=== PATIENT | female | born 1960 | race Caucasian/White ===

== ENCOUNTER 2017-01-28 13:51 | Emergency (ER) | payer MEDICARE, OTHER ==
[~2017-01-28] VITALS: Ht 162.6 cm; Wt 72.0 kg
[~2017-01-28 13:51] MED LIST: ALBU17I INH; BETH25TA3 PO; CIPR500T4 PO; DICY20TA10 PO; FEMA2.5T PO; LATA.005%O OU; LEXA10TA PO; NEXI40CA PO; NORC7.5T PO; PRED10 PO; SPIRCAP INH; XANA1TAB6 PO; ZOFR4TAB3 PO
[2017-01-28 13:53] VITALS: BP 134/76; PULSE 98; RESP 24; TEMP 97.7; O2SAT 96
--- NOTE | 2017-01-28 14:43 | PD ---
Physical Exam Time Seen by Provider: 14:41 Narrative 56 y/o female with pruritic rash which started 3 days ago. Seems to be worse on her arms and thighs. vss Seen at triage desk. Awaiting bed placement. Data Data Last Documented VS Vital Signs Date Time Temp Pulse Resp B/P Pulse Ox O2 Delivery O2 Flow Rate FiO2 01/28/17 13:53 97.7 98 24 134/76 96 Room Air [facility] Medical Record Reviewed: Yes Supervised Visit with JOANNE: Yao Calderon January 28, 2017 14:43
[2017-01-28 15:28] VITALS: RESP 22; O2SAT 99
[2017-01-28] MEDS ORDERED: diphenhydrAMINE HCL 50 MG/ML VIAL IVP ONE (17:30)
[2017-01-28] MEDS ORDERED: SODIUM CHLORIDE 0.9% FLUSH 10 ML FLUSH IVF PRN (17:30)
[2017-01-28] MEDS ORDERED: methylPREDNISolone SOD SUCC 125 MG/2 ML VIAL IVP ONE (17:30)
[2017-01-28] MEDS ORDERED: FAMOTIDINE 20 MG/2 ML VIAL IV PUSH SCH (17:30)
[2017-01-28] MEDS ORDERED: SODIUM CHLOR 0.9% 1000 ML INJ 1,000 ML IV ONE (17:30)
--- NOTE | 2017-01-28 17:37 | PD ---
HPI Chief Complaint: Skin Problem Time Seen by Provider: 17:07 Travel History International Travel<30 days: No Contact w/Intl Traveler<30days: No Traveled to known affect area: No History of Present Illness HPI Patient is a 56-year-old female who presents to emergency with multiple complaints. Patient reports that she got her hair dyed on Saturday at her Salon. Reports that she used the normal hair dye that she normally uses and has used in the past. Patient reports that after she had her hair dyed, she broke in to a rash. Patient reports that the rash initially started her ears and then to the back of her neck, reports that she now has a rash throughout her body. Patient reports that the rash is pruritic and "I can't stop scratching it." Patient reports that she has used Benadryl cream without any resolution of symptoms. Patient denies fevers or chills. Reports that she has used the same hair dye solution in the past and has tolerated and has never had a rash. Patient denies any new lotions or creams or any new laundry detergents. Patient also reports that she has had a reactive cough since August. Patient reports that she is a smoker, reports that when she coughs, coughing up thick productive mucus. Patient reports that she has been on a couple bouts of antibiotics with no relief of symptoms. Patient reports that she has been worked up for pneumonia, reports that she was told that her x-rays were clear. Patient would like to have a workup for possible pneumonia. Reports that she can't stop coughing, reports that she is also wheezing. PFSH Past Medical History Anxiety: Yes Depression: Yes Cancer: Yes (BREAST) Cardiac Catheterization: Yes (FIRST IN 1999, SECOND 2005) High Cholesterol: Yes Chest Pain: Yes (2 HEART CATHS AND WAS R/O FOR [place]) COPD: Yes GERD: Yes Glaucoma: Yes Headaches: Yes Respiratory: Yes (COPD) Radiation Therapy: Yes Sleep Apnea: Yes PNEUMOCCOCAL Vaccine (Year): 2 Menopausal: Yes : 6 Para: 0 Miscarriage: 6 Dilation and Curettage (D&C): Yes (x 6) Past Surgical History Abdominal Surgery: Yes (SEVERAL LAPOROSCOPIES) Appendectomy: Yes Cardiac Surgery: No Cholecystectomy: Yes Genitourinary Surgery: No Gynecologic Surgery: Yes (LAPOSCOPY X5 OVER TEN YEARS AGO ) Neurologic Surgery: No Thoracic Surgery: No Other Surgery: Yes (R BREAST LUMPECTOMY) Family History Family Hypercholesterolemia: Yes Social History Alcohol Use: No Tobacco Use: Yes (1 PPD) Substance Use: No Allergies-Medications (Allergen,Severity, Reaction): Coded Allergies: Prozac (Verified Allergy, Severe, Rash, 01/28/17) Toradol (Verified Allergy, Severe, Hallucinations, 01/28/17) Reported Meds & Prescriptions Reported Meds & Active Scripts Active Reported Clear Eyes Natural Tears Opth Drops (Polyvinyl Alcohol-Povidone Opth Drops) 5-6 Mg/Ml Drops 1 Drop EACH EYE DAILY C 500 (Ascorbic Acid) 500 Mg Tab Unknown Dose PO DAILY B-12 (Cyanocobalamin) 100 Mcg Tab Unknown Dose PO DAILY Probiotic (Lactobacillus Acidophilus) 1 Cap Cap 1 Cap PO TIDAC Singulair (Montelukast Sodium) 10 Mg Tab 10 Mg PO DAILY Effexor XR 24 HR (Venlafaxine HCl) 75 Mg Cap 75 Mg PO DAILY Latanoprost Opth Drops (Latanoprost) 0.005% Drops 1 Drop EACH EYE HS Refrigerate until opened. Tyler (Hydrocodone-Acetaminophen) 7.5-325 mg Tab 1 Tab PO QID PRN Nexium (Esomeprazole DR) 40 Mg Capdr 40 Mg PO DAILY Bethanechol 25 Mg Tab 25 Mg PO QID Xanax (Alprazolam) 1 Mg Tab 1 Mg PO Q4-6H PRN Proventil Hfa 6.7 GM Inh (Albuterol Sulfate) 90 Mcg/Act Aer 2 Puff INH Q4H PRN Review of Systems General / Constitutional: No: Fever, Chills Eyes: No: Visual changes HENT: No: Headaches Cardiovascular: No: Chest Pain or Discomfort Respiratory: Positive: Cough, Shortness of Breath, Wheezing Gastrointestinal: No: Abdominal Pain Genitourinary: No: Dysuria Musculoskeletal: No: Pain Skin: Positive Rash, Positive Itching, Positive Hives Neurologic: No: Weakness Psychiatric: No: Depression Endocrine: No: Polydipsia Hematologic/Lymphatic: No: Easy Bruising Physical Exam Narrative GENERAL: No acute distress, nontoxic SKIN: Focused skin assessment warm/dry. patient with rash to back, thorax, extremities, groin, there is no petichiae or purpura, no vesicular rash, macula rash throughout - blanching rash HEAD: Atraumatic. Normocephalic. EYES: Pupils equal and round. No scleral icterus. No injection or drainage. ENT: No nasal bleeding or discharge. Mucous membranes pink and moist. NECK: Trachea midline. No JVD. CARDIOVASCULAR: Regular rate and rhythm. No murmur appreciated. RESPIRATORY: No accessory muscle use. Patient with scattered wheezing throughout upper and lower lobes of the lungs. GASTROINTESTINAL: Abdomen soft, non-tender, nondistended. Hepatic and splenic margins not palpable. MUSCULOSKELETAL: No obvious deformities. No clubbing. No cyanosis. No edema. NEUROLOGICAL: Awake and alert. No obvious cranial nerve deficits. Motor grossly within normal limits. Normal speech. PSYCHIATRIC: Appropriate mood and affect; insight and judgment normal. Data Data Last Documented VS Vital Signs Date Time Temp Pulse Resp B/P Pulse Ox O2 Delivery O2 Flow Rate FiO2 01/28/17 19:10 86 18 139/65 95 Room Air 01/28/17 13:53 97.7 Orders Complete Blood Count With Diff (01/28/17 17:17) Comprehensive Metabolic Panel (01/28/17 17:17) Act Partial Throm Time (Ptt) (01/28/17 17:17) Prothrombin Time / Inr (Pt) (01/28/17 17:17) Magnesium (Mg) (01/28/17 17:17) Urinalysis - C+S If Indicated (01/28/17 17:17) Iv Access Insert/Monitor (01/28/17 17:17) Ecg Monitoring (01/28/17 17:17) Oximetry (01/28/17 17:17) Chest, Pa & Lat (01/28/17 17:17) Sodium Chloride 0.9% Flush (Ns Flush) (01/28/17 17:30) Methylprednisolone So Succ Inj (Solumedr (01/28/17 17:30) Albuterol-Ipratropium Neb (Duoneb Neb) (01/28/17 17:30) Famotidine Inj (Pepcid Inj) (01/28/17 17:30) Sodium Chlor 0.9% 1000 Ml Inj (Ns 1000 M (01/28/17 17:30) Diphenhydramine Inj (Benadryl Inj) (01/28/17 17:30) Labs Laboratory Tests Test 01/28/17 18:25 White Blood Count 10.0 TH/MM3 Red Blood Count 4.53 MIL/MM3 Hemoglobin 14.3 GM/DL Hematocrit 42.3 % Mean Corpuscular Volume 93.4 FL Mean Corpuscular Hemoglobin 31.5 PG Mean Corpuscular Hemoglobin 33.7 % Concent Red Cell Distribution Width 13.6 % Platelet Count 313 TH/MM3 Mean Platelet Volume 7.9 FL Neutrophils (%) (Auto) 80.3 % Lymphocytes (%) (Auto) 14.3 % Monocytes (%) (Auto) 4.8 % Eosinophils (%) (Auto) 0.4 % Basophils (%) (Auto) 0.2 % Neutrophils # (Auto) 8.0 TH/MM3 Lymphocytes # (Auto) 1.4 TH/MM3 Monocytes # (Auto) 0.5 TH/MM3 Eosinophils # (Auto) 0.0 TH/MM3 Basophils # (Auto) 0.0 TH/MM3 CBC Comment DIFF FINAL Differential Comment Prothrombin Time 10.1 SEC Prothromb Time International 0.9 RATIO Ratio Activated Partial 24.3 SEC Thromboplast Time Sodium Level 137 MEQ/L Potassium Level 3.8 MEQ/L Chloride Level 102 MEQ/L Carbon Dioxide Level 26.1 MEQ/L Anion Gap 9 MEQ/L Blood Urea Nitrogen 10 MG/DL Creatinine 0.77 MG/DL Estimat Glomerular Filtration 78 ML/MIN Rate Random Glucose 90 MG/DL Calcium Level 8.9 MG/DL Magnesium Level 1.9 MG/DL Total Bilirubin 0.6 MG/DL Aspartate Amino Transf 23 U/L (AST/SGOT) Alanine Aminotransferase 24 U/L (ALT/SGPT) Alkaline Phosphatase 48 U/L Total Protein 7.8 GM/DL Albumin 4.2 GM/DL [facility] Medical Decision Making Medical Screen Exam Complete: Yes Emergency Medical Condition: Yes Interpretation(s) Vital Signs Date Time Temp Pulse Resp B/P Pulse Ox O2 Delivery O2 Flow Rate FiO2 01/28/17 15:28 22 99 Room Air 01/28/17 13:53 97.7 98 24 134/76 96 Room Air Differential Diagnosis Differential for rash would include allergic reaction from hair dye vs environmental allergic reaction, patient may also have developed a secondary reaction from scratching her skin Differential for wheezing and cough would include pneumonia, COPD exacerbation, influenza Narrative Course Patient is a 56-year-old female who is nontoxic with multiple complaints. Patient reports that she developed a rash 3 days ago after she had her hair dyed at her normal salon. Patient reports that she tried using Benadryl cream without any relief of symptoms. Patient reports that she can't stop itching her body, she did not try using Benadryl for pruritus. Plan to administer steroids, Pepcid, Benadryl. Patient also with cough, wheezing since September. Patient is a smoker, reports that she has had a workup for pneumonia which were all benign. Reports that she is convinced that she has pneumonia at this time, patient here for evaluation of possible pneumonia as well. She is wheezing on exam, plan to give IV steroids, nebs treatments. Straight the chest ordered to evaluate for possible pneumonia. Vital Signs Date Time Temp Pulse Resp B/P Pulse Ox O2 Delivery O2 Flow Rate FiO2 01/28/17 19:10 86 18 139/65 95 Room Air 01/28/17 18:13 18 96 Room Air 01/28/17 15:28 22 99 Room Air 01/28/17 13:53 97.7 98 24 134/76 96 Room Air Laboratory Tests Test 01/28/17 18:25 White Blood Count 10.0 TH/MM3 (4.0-11.0) Red Blood Count 4.53 MIL/MM3 (4.00-5.30) Hemoglobin 14.3 GM/DL (11.6-15.3) Hematocrit 42.3 % (35.0-46.0) Mean Corpuscular Volume 93.4 FL (80.0-100.0) Mean Corpuscular Hemoglobin 31.5 PG (27.0-34.0) Mean Corpuscular Hemoglobin 33.7 % Concent (32.0-36.0) Red Cell Distribution Width 13.6 % (11.6-17.2) Platelet Count 313 TH/MM3 (150-450) Mean Platelet Volume 7.9 FL (7.0-11.0) Neutrophils (%) (Auto) 80.3 % (16.0-70.0) Lymphocytes (%) (Auto) 14.3 % (9.0-44.0) Monocytes (%) (Auto) 4.8 % (0.0-8.0) Eosinophils (%) (Auto) 0.4 % (0.0-4.0) Basophils (%) (Auto) 0.2 % (0.0-2.0) Neutrophils # (Auto) 8.0 TH/MM3 (1.8-7.7) Lymphocytes # (Auto) 1.4 TH/MM3 (1.0-4.8) Monocytes # (Auto) 0.5 TH/MM3 (0-0.9) Eosinophils # (Auto) 0.0 TH/MM3 (0-0.4) Basophils # (Auto) 0.0 TH/MM3 (0-0.2) CBC Comment DIFF FINAL Differential Comment Prothrombin Time 10.1 SEC (9.8-11.6) Prothromb Time International 0.9 RATIO Ratio Activated Partial 24.3 SEC Thromboplast Time (24.3-30.1) Sodium Level 137 MEQ/L (136-145) Potassium Level 3.8 MEQ/L (3.5-5.1) Chloride Level 102 MEQ/L (98-107) Carbon Dioxide Level 26.1 MEQ/L (21.0-32.0) Anion Gap 9 MEQ/L (5-15) Blood Urea Nitrogen 10 MG/DL (7-18) Creatinine 0.77 MG/DL (0.50-1.00) Estimat Glomerular Filtration 78 ML/MIN (>89) Rate Random Glucose 90 MG/DL (74-106) Calcium Level 8.9 MG/DL (8.5-10.1) Magnesium Level 1.9 MG/DL (1.5-2.5) Total Bilirubin 0.6 MG/DL (0.2-1.0) Aspartate Amino Transf 23 U/L (15-37) (AST/SGOT) Alanine Aminotransferase 24 U/L (10-53) (ALT/SGPT) Alkaline Phosphatase 48 U/L (45-117) Total Protein 7.8 GM/DL (6.4-8.2) Albumin 4.2 GM/DL (3.4-5.0) Last Impressions Chest X-Ray 01/28/17 2567 Signed Impressions: Service Date/Time: Saturday, January 28, 2017 17:34 - CONCLUSION: No acute disease Grant Deluca MD Patient re-evaluated, patient feeling much better at this time. Reviewed all labs and all studies with patient in detail. Patient will follow up with her primary care doctor and return to ER as needed. Signs and symptoms of when to return to ER was reviewed with patient. Diagnosis Primary Impression: Allergic reaction Qualified Code: T78.40XA - Allergic reaction, initial encounter Additional Impression: COPD with exacerbation Patient Instructions: General Instructions Additional Instructions: Please follow up with your primary care doctor in 2-3 days Please take all antibiotics as prescribed Return to ER as needed of if symptoms worsen or progress Med/Other Pt SpecificInfo: Prescription(s) given Scripts Famotidine (Pepcid)20 Mg Tab20 Mg PO BID 5 Days Ref 0 Prov:Elham Shi DO 01/28/17 Diphenhydramine (Benadryl Allergy)25 Mg Tab25 Mg PO Q6H PRN (ALLERGIES) 5 Days Ref 0 Prov:Elham Shi DO 01/28/17 Albuterol 8.5 GM Inh (Proair Hfa 8.5 GM Inh)90 Mcg/Act Aer2 Puff INH Q4-6H PRN ( SHORTNESS OF BREATH) #1 INHALER Ref 0 108 mcg/actuation Prov:Elham Shi DO 01/28/17 Prednisone 20 Mg Tab20 Mg PO DIRECTED #10 TAB Ref 0 Take 60 MG daily x 4 days, then 40 MG x 4 days, then 20 MG daily x 4 days. Prov:Elham Shi DO 01/28/17 Doxycycline Hyclate 100 Mg [id number] Mg PO BID 10 Days Ref 0 Prov:Elham Shi DO 01/28/17 Disposition: 01 DISCHARGE HOME Condition: Stable Elham Shi DO January 28, 2017 17:37
--- NOTE | 2017-01-28 17:52 | RADRPT ---
EXAM DATE/TIME: 01/28/2017 17:34 [facility] COMPARISON: CHEST PA & LAT, July 21, 2014, 11:53. INDICATIONS : Short of breath. MEDICAL HISTORY : None. SURGICAL HISTORY : Right breast lumpectomy. ENCOUNTER: Initial ACUITY: 2 days PAIN SCORE: 0/10 LOCATION: Bilateral chest FINDINGS: Number stable small calcific granulomas bilaterally. No evidence of infiltrate or effusion there is c ardiac contours are stable and satisfactory. Thoracic skeleton is intact. CONCLUSION: No acute disease Grant Deluca MD on January 28, 2017 at 17:49 Board Certified Radiologist. This report was verified electronically.
[2017-01-28] MEDS ORDERED: B-12100T PO (18:05)
[2017-01-28] MEDS ORDERED: C 50TAB PO (18:05)
[2017-01-28] MEDS ORDERED: BETH25TA2 PO (18:05)
[2017-01-28] MEDS ORDERED: HYDR-3288 PO (18:05)
[2017-01-28] MEDS ORDERED: MONT10TA2 PO (18:05)
[2017-01-28] MEDS ORDERED: VENL75XR PO (18:05)
[2017-01-28] MEDS ORDERED: LATA0.002 EACH EYE (18:05)
[2017-01-28] MEDS ORDERED: XANA1TAB2 PO (18:05)
[2017-01-28] MEDS ORDERED: NEXI40CA PO (18:05)
[2017-01-28] MEDS ORDERED: LACTCAP8 PO (18:05)
[2017-01-28] MEDS ORDERED: ALBU6.7H INH (18:05)
[2017-01-28] MEDS ORDERED: [UNRECOGNIZED DRUG - CODE] EACH EYE (18:06)
[2017-01-28 18:13] VITALS: RESP 18; O2SAT 96
[2017-01-28] MEDS: RESP: ALBUTEROL 2.5 MG/IPRATROPIUM 0.5 MG NEB (SCH) INH (18:29)
[2017-01-28 18:56] LABS: BASOPHIL % 0.2 % (0.0-2.0); EOSINOPHIL % 0.4 % (0.0-4.0); HEMATOCRIT 42.3 % (35.0-46.0); HEMO FLAGS DIFF FINAL; LYMPH % 14.3 % (9.0-44.0); LYMPHOCYTE # 1.4 TH/MM3 (1.0-4.8); MEAN CELL VOLUME 93.4 FL (80.0-100.0); MEAN CORPUSCULAR HEMOGLOBIN 31.5 PG (27.0-34.0); MEAN CORPUSCULAR HGB CONC 33.7 % (32.0-36.0); MONO % 4.8 % (0.0-8.0); NEUT % 80.3 % (16.0-70.0); PLATELET COUNT 313 TH/MM3 (150-450); RED BLOOD COUNT 4.53 MIL/MM3 (4.00-5.30); RED CELL DISTRIBUTION WIDTH 13.6 % (11.6-17.2)
[2017-01-28 19:02] LABS: APTT (PATIENT) 24.3 SEC (24.3-30.1); INTERNATIONAL NORMALIZED RATIO 0.9 RATIO; PROTHROMBIN TIME - PATIENT 10.1 SEC (9.8-11.6)
[2017-01-28 19:10] VITALS: BP 139/65; PULSE 86; RESP 18; O2SAT 95
[2017-01-28 19:11] LABS: ANION GAP 9 MEQ/L (5-15); AST (GOT) 23 U/L (15-37); BICARBONATE 26.1 MEQ/L (21.0-32.0); BLOOD UREA NITROGEN 10 MG/DL (7-18); CHLORIDE 102 MEQ/L (98-107); GLOMERULAR FILTRATION RATE 78 ML/MIN (>89); MAGNESIUM 1.9 MG/DL (1.5-2.5); POTASSIUM 3.8 MEQ/L (3.5-5.1); SODIUM (NA) 137 MEQ/L (136-145)
[2017-01-28 19:14] LABS: ALKALINE PHOSPHATASE 48 U/L (45-117); ALT (GPT) 24 U/L (10-53); TOTAL BILIRUBIN ADULT 0.6 MG/DL (0.2-1.0)
[2017-01-28] MEDS ORDERED: ALBUAER3 INH (19:34)
[2017-01-28] MEDS ORDERED: PRED20 PO (19:34)
[2017-01-28] MEDS ORDERED: DOXY100C PO (19:34)
[2017-01-28] MEDS ORDERED: BENA25TA3 PO (19:35)
[2017-01-28] MEDS ORDERED: FAMO1TAB37 PO (19:35)
[2017-01-28] MEDS ORDERED: DOXYCYCLINE HYCLATE 100 MG CAP PO ONE (19:45)
[2017-01-28 19:49] LABS: BLOOD, URINE NEG (NEG); GLUCOSE,URINE NEG (NEG); KETONE, URINE NEG (NEG); MUCUS URINE FEW /lpf (OCC); NITRITE,URINE NEG (NEG); SQUAMOUS EPITHELIAL CELL URINE 1 /hpf (0-5); URINE COLOR LIGHT-YELLOW (YELLW/STRAW)
[2017-01-28 19:50] LABS: COMMENT (UR) CULT NOT INDICATED; CULTURE IF INDICATED CULT NOT INDICATED
== END 2017-01-28 20:11 | disposition home or self-care (01) ==
LOC: NEPD 13:51
DX: T78.40XA Allergy, unspecified, initial encounter (principal); J44.1 Chronic obstructive pulmonary disease with (acute) exacerbation; R06.2 Wheezing; R05 Cough; H40.9 Unspecified glaucoma; F17.210 Nicotine dependence, cigarettes, uncomplicated; X58.XXXA Exposure to other specified factors, initial encounter
CPT/HCPCS: 71020; 80053; 81001; 83735; 85025; 85610; 85730; 94640; 94664; 96374; 96375; 99283; J1200; J2930; J7030

== ENCOUNTER 2017-07-17 15:53 | Emergency (ER) | payer MEDICARE, OTHER ==
[~2017-07-17] VITALS: Ht 162.6 cm; Wt 75.0 kg
[~2017-07-17 15:53] MED LIST changes: -ALBU17I INH; +ALBU6.7H INH; +ALBUAER3 INH; +B-12100T PO; +BENA25TA3 PO; +BETH25TA2 PO; -BETH25TA3 PO; +C 50TAB PO; -CIPR500T4 PO; -DICY20TA10 PO; +DOXY100C PO; +FAMO1TAB37 PO; -FEMA2.5T PO; +HYDR-3288 PO; +LACTCAP8 PO; -LATA.005%O OU; +LATA0.002 EACH EYE; -LEXA10TA PO; +MONT10TA2 PO; -NORC7.5T PO; -PRED10 PO; +PRED20 PO; -SPIRCAP INH; +VENL75XR PO; +XANA1TAB2 PO; -XANA1TAB6 PO; -ZOFR4TAB3 PO; +[UNRECOGNIZED DRUG - CODE] EACH EYE
[2017-07-17 15:54] VITALS: BP 126/78; PULSE 84; RESP 20; TEMP 98.3; O2SAT 98
[2017-07-17 17:09] LABS: AUTOMATED NEUTROPHIL # 4.7 TH/MM3 (1.8-7.7); BASOPHIL % 0.4 % (0.0-2.0); EOSINOPHIL # 0.1 TH/MM3 (0-0.4); EOSINOPHIL % 1.4 % (0.0-4.0); HEMO FLAGS DIFF FINAL; LYMPHOCYTE # 2.2 TH/MM3 (1.0-4.8); MEAN CELL VOLUME 94.4 FL (80.0-100.0); MEAN CORPUSCULAR HEMOGLOBIN 31.9 PG (27.0-34.0); MEAN CORPUSCULAR HGB CONC 33.8 % (32.0-36.0); MONO % 5.4 % (0.0-8.0); NEUT % 62.8 % (16.0-70.0); PLATELET COUNT 337 TH/MM3 (150-450); RED BLOOD COUNT 4.56 MIL/MM3 (4.00-5.30); RED CELL DISTRIBUTION WIDTH 13.8 % (11.6-17.2); WHITE BLOOD COUNT 7.5 TH/MM3 (4.0-11.0)
[2017-07-17 17:19] LABS: ANION GAP 4 MEQ/L (5-15); BLOOD UREA NITROGEN 6 MG/DL (7-18); CHLORIDE 105 MEQ/L (98-107); GLOMERULAR FILTRATION RATE 78 ML/MIN (>89); SODIUM (NA) 138 MEQ/L (136-145)
[2017-07-17 17:22] LABS: CREATINE KINASE 113 U/L (26-192)
[2017-07-17 17:34] LABS: CKMB 1.1 NG/ML (0.5-3.6)
--- NOTE | 2017-07-17 17:44 | RADRPT ---
EXAM DATE/TIME: 07/17/2017 17:00 [facility] COMPARISON: CHEST PA & LAT, January 28, 2017, 17:34. INDICATIONS : Dizziness, chest pain, and weakness for several months. MEDICAL HISTORY : Carcinoma, breast. SURGICAL HISTORY : Right breast lumpectomy. ENCOUNTER: Initial ACUITY: 2 months PAIN SCORE: 7/10 LOCATION: Posterior lower chest. FINDINGS: PA and lateral views of the chest demonstrate the lungs to be symmetrically aerated without evidence of mass, infiltrate or effusion. A small calcified granuloma involving the right lung base and latera l left upper lobe. The cardiomediastinal contours are unremarkable. Osseous structures are intact. CONCLUSION: No acute disease. Von Go Jr., MD on July 17, 2017 at 17:42 Board Certified Radiologist. This report was verified electronically.
--- NOTE | 2017-07-17 18:02 | PD ---
HPI Chief Complaint: Medical Clearance Time Seen by Provider: 17:33 Travel History International Travel<30 days: No Contact w/Intl Traveler<30days: No Traveled to known affect area: No History of Present Illness HPI 57-year-old female with history of CAD, COPD, breast cancer in remission, presents to emergency department for evaluation of multiple vague complaints. Patient has a list of all of her symptoms that she is concerned about. Patient first would like to discuss intermittent left-sided chest pressure with pain in her right arm. This is been ongoing for the last 6 months, intermittently. Ears no shortness of breath or sensation of lightheadedness associated with it. Patient also feels as though her vertigo is reoccurring intermittently also over the last 6 months. She has had one episode of black emesis over the last 6 months that her primary care provider is about. Patient has also had intermittent nausea, vomiting, and abdominal pain. Currently she is reporting a headache, dull, aching, intermittent as well of the last 6 months and labile moods. Denies suicidal or homicidal ideations. She states that she has seen psychiatry and her primary care provider and her neurologist and "nobody knows the answers." She denies any recent illnesses, fever, or chills. She has no other symptoms to report. PFSH Past Medical History Anxiety: Yes Depression: Yes Cancer: Yes (BREAST) Cardiac Catheterization: Yes (FIRST IN 1999, SECOND 2005) High Cholesterol: Yes Chest Pain: Yes (2 HEART CATHS AND WAS R/O FOR [place]) COPD: Yes GERD: Yes Glaucoma: Yes Headaches: Yes Respiratory: Yes Radiation Therapy: Yes Sleep Apnea: Yes PNEUMOCCOCAL Vaccine (Year): 2 ?: Not Menopausal: Yes : 6 Para: 0 Miscarriage: 6 Dilation and Curettage (D&C): Yes (x 6) Past Surgical History Abdominal Surgery: Yes (SEVERAL LAPOROSCOPIES) Appendectomy: Yes Cardiac Surgery: No Cholecystectomy: Yes Genitourinary Surgery: No Gynecologic Surgery: Yes (LAPOSCOPY X5 OVER TEN YEARS AGO ) Neurologic Surgery: No Thoracic Surgery: No Other Surgery: Yes (R BREAST LUMPECTOMY) Family History Family Hypercholesterolemia: Yes Social History Alcohol Use: No Tobacco Use: Yes (1/2 ppd) Substance Use: No Allergies-Medications (Allergen,Severity, Reaction): Coded Allergies: fluoxetine (Verified Allergy, Severe, Rash, 07/17/17) ketorolac (Verified Allergy, Severe, Hallucinations, 07/17/17) Reported Meds & Prescriptions Reported Meds & Active Scripts Active Reported Tramadol (Tramadol HCl) 50 Mg Tab 50 Mg PO Q6H PRN Glycopyrrolate 2 Mg Tab 2 Mg PO Q12HR PRN Incruse Ellipta Inh (Umeclidinium [place] Inh) 0.0625 Mg/Act Inh 1 Puff INH DAILY Dicyclomine (Dicyclomine HCl) 20 Mg Tab 20 Mg PO Q6HR PRN C 500 (Ascorbic Acid) 500 Mg Tab 500 Mg PO DAILY B-12 (Cyanocobalamin) 100 Mcg Tab 100 Mcg PO DAILY Probiotic (Lactobacillus Acidophilus) 1 Cap Cap 1 Cap PO TIDAC Singulair (Montelukast Sodium) 10 Mg Tab 10 Mg PO DAILY Effexor XR 24 HR (Venlafaxine HCl) 75 Mg Cap 75 Mg PO DAILY Latanoprost Opth Drops (Latanoprost) 0.005% Drops 1 Drop EACH EYE HS Refrigerate until opened. Nexium (Esomeprazole DR) 40 Mg Capdr 40 Mg PO DAILY BRAND MEDICALLY NECESSARY Bethanechol 25 Mg Tab 25 Mg PO QID Xanax (Alprazolam) 1 Mg Tab 1 Mg PO Q4-6H PRN Proventil Hfa 6.7 GM Inh (Albuterol Sulfate) 90 Mcg/Act Aer 2 Puff INH Q4H PRN Review of Systems Except as stated in HPI: all other systems reviewed are Neg Physical Exam Narrative GENERAL: Well-nourished, female patient with bizarre affect, in no acute distress. SKIN: Focused skin assessment warm/dry. HEAD: Atraumatic. Normocephalic. EYES: Pupils equal and round. No scleral icterus. No injection or drainage. ENT: No nasal bleeding or discharge. Mucous membranes pink and moist. NECK: Trachea midline. No JVD. CARDIOVASCULAR: Regular rate and rhythm. No murmur appreciated. RESPIRATORY: No accessory muscle use. Clear to auscultation. Breath sounds equal bilaterally. GASTROINTESTINAL: Abdomen soft, non-tender, nondistended. Hepatic and splenic margins not palpable. MUSCULOSKELETAL: No obvious deformities. No clubbing. No cyanosis. No edema. NEUROLOGICAL: Awake and alert. No obvious cranial nerve deficits. Motor grossly within normal limits. Normal speech. Data Data Last Documented VS Orders Orders Electrocardiogram (07/17/17 16:08) Complete Blood Count With Diff (07/17/17 16:08) Basic Metabolic Panel (Bmp) (07/17/17 16:08) Ckmb (Isoenzyme) Profile (07/17/17 16:08) Troponin I (07/17/17 16:08) Iv Access Insert/Monitor (07/17/17 16:08) Ecg Monitoring (07/17/17 16:08) Oxygen Administration (07/17/17 16:08) Oximetry (07/17/17 16:08) Chest, Pa & Lat (07/17/17 16:08) CKMB (07/17/17 16:41) CKMB% (07/17/17 16:41) Ct Brain W/O Iv Contrast(Rout) (07/17/17 ) Diphenhydramine Inj (Benadryl Inj) (07/17/17 18:15) Metoclopramide Inj (Reglan Inj) (07/17/17 18:15) Dexamethasone Inj (Decadron Inj) (07/17/17 18:15) Urinalysis - C+S If Indicated (07/17/17 19:37) Ed Discharge Order (07/17/17 22:46) Labs Laboratory Tests Test 07/17/17 16:41 07/17/17 19:42 White Blood Count 7.5 TH/MM3 Red Blood Count 4.56 MIL/MM3 Hemoglobin 14.6 GM/DL Hematocrit 43.0 % Mean Corpuscular Volume 94.4 FL Mean Corpuscular Hemoglobin 31.9 PG Mean Corpuscular Hemoglobin Concent 33.8 % Red Cell Distribution Width 13.8 % Platelet Count 337 TH/MM3 Mean Platelet Volume 7.8 FL Neutrophils (%) (Auto) 62.8 % Lymphocytes (%) (Auto) 30.0 % Monocytes (%) (Auto) 5.4 % Eosinophils (%) (Auto) 1.4 % Basophils (%) (Auto) 0.4 % Neutrophils # (Auto) 4.7 TH/MM3 Lymphocytes # (Auto) 2.2 TH/MM3 Monocytes # (Auto) 0.4 TH/MM3 Eosinophils # (Auto) 0.1 TH/MM3 Basophils # (Auto) 0.0 TH/MM3 CBC Comment DIFF FINAL Differential Comment Blood Urea Nitrogen 6 MG/DL Creatinine 0.76 MG/DL Random Glucose 89 MG/DL Calcium Level 9.1 MG/DL Sodium Level 138 MEQ/L Potassium Level 4.0 MEQ/L Chloride Level 105 MEQ/L Carbon Dioxide Level 29.0 MEQ/L Anion Gap 4 MEQ/L Estimat Glomerular Filtration Rate 78 ML/MIN Total Creatine Kinase 113 U/L Creatine Kinase MB 1.1 NG/ML Troponin I LESS THAN 0.02 NG/ML Urine Color LIGHT-YELLOW Urine Turbidity CLEAR Urine pH 5.5 Urine Specific [place] 1.004 Urine Protein NEG mg/dL Urine Glucose (UA) NEG mg/dL Urine Ketones NEG mg/dL Urine Occult Blood NEG Urine Nitrite NEG Urine Bilirubin NEG Urine Urobilinogen LESS THAN 2.0 MG/DL Urine Leukocyte Esterase NEG Urine RBC LESS THAN 1 /hpf Urine WBC 1 /hpf Urine Squamous Epithelial Cells <1 /hpf Microscopic Urinalysis Comment CULT NOT INDICATED MDM Medical Decision Making Medical Screen Exam Complete: Yes Emergency Medical Condition: Yes Medical Record Reviewed: Yes Differential Diagnosis Mood disorder versus personality disorder versus electrolyte abnormality versus depression versus muscular skeletal pain versus migraine versus anxiety Narrative Course 57-year-old female presents to emergency department for evaluation of multiple complaints. Patient appears without distress. Neuro exam is nonfocal. Vital signs are stable. Laboratory Tests Test 07/17/17 16:41 07/17/17 19:42 White Blood Count 7.5 TH/MM3 Red Blood Count 4.56 MIL/MM3 Hemoglobin 14.6 GM/DL Hematocrit 43.0 % Mean Corpuscular Volume 94.4 FL Mean Corpuscular Hemoglobin 31.9 PG Mean Corpuscular Hemoglobin Concent 33.8 % Red Cell Distribution Width 13.8 % Platelet Count 337 TH/MM3 Mean Platelet Volume 7.8 FL Neutrophils (%) (Auto) 62.8 % Lymphocytes (%) (Auto) 30.0 % Monocytes (%) (Auto) 5.4 % Eosinophils (%) (Auto) 1.4 % Basophils (%) (Auto) 0.4 % Neutrophils # (Auto) 4.7 TH/MM3 Lymphocytes # (Auto) 2.2 TH/MM3 Monocytes # (Auto) 0.4 TH/MM3 Eosinophils # (Auto) 0.1 TH/MM3 Basophils # (Auto) 0.0 TH/MM3 CBC Comment DIFF FINAL Differential Comment Blood Urea Nitrogen 6 MG/DL Creatinine 0.76 MG/DL Random Glucose 89 MG/DL Calcium Level 9.1 MG/DL Sodium Level 138 MEQ/L Potassium Level 4.0 MEQ/L Chloride Level 105 MEQ/L Carbon Dioxide Level 29.0 MEQ/L Anion Gap 4 MEQ/L Estimat Glomerular Filtration Rate 78 ML/MIN Total Creatine Kinase 113 U/L Creatine Kinase MB 1.1 NG/ML Troponin I LESS THAN 0.02 NG/ML Urine Color LIGHT-YELLOW Urine Turbidity CLEAR Urine pH 5.5 Urine Specific [place] 1.004 Urine Protein NEG mg/dL Urine Glucose (UA) NEG mg/dL Urine Ketones NEG mg/dL Urine Occult Blood NEG Urine Nitrite NEG Urine Bilirubin NEG Urine Urobilinogen LESS THAN 2.0 MG/DL Urine Leukocyte Esterase NEG Urine RBC LESS THAN 1 /hpf Urine WBC 1 /hpf Urine Squamous Epithelial Cells <1 /hpf Microscopic Urinalysis Comment CULT NOT INDICATED Last Impressions Chest X-Ray 07/17/17 1608 Signed Impressions: Service Date/Time: Monday, July 17, 2017 17:00 - CONCLUSION: No acute disease. Von Go Jr., MD Head CT 07/17/17 0000 Signed Impressions: Service Date/Time: Monday, July 17, 2017 18:51 - CONCLUSION: Normal examination. Girish Mark MD I have reviewed the findings and discussed with my attending physician. I also discussed with the patient. Upon reassessment, her headache has resolved. She is discharged to follow-up with her primary care provider. She agrees to return immediately with any acute worsening of symptoms. Diagnosis Primary Impression: Headache Qualified Codes: R51 - Headache Additional Impressions: Chest wall pain Anxiety Referrals: Primary Care Physician Patient Instructions: Acute Headache (ED), Chest Wall Pain (ED), General Instructions Additional Instructions: Continue all medication as already prescribed Follow-up with a primary care provider Return immediately with any acute worsening of symptoms Med/Other Pt SpecificInfo: Prescription(s) given Disposition: 01 DISCHARGE HOME Condition: Stable Crista Davies Jul 17, 2017 18:02
[2017-07-17 18:15] VITALS: BP 140/67; PULSE 61; RESP 15; O2SAT 98
[2017-07-17] MEDS ORDERED: DEXAMETHASONE SOD PHOS 4 MG/ML VIAL IV PUSH ONE (18:15)
[2017-07-17] MEDS ORDERED: METOCLOPRAMIDE HCL 10 MG/2 ML VIAL IV PUSH ONE (18:15)
[2017-07-17] MEDS ORDERED: diphenhydrAMINE HCL 50 MG/ML VIAL IV PUSH ONE (18:15)
[2017-07-17] MEDS ORDERED: UMEC1INH INH (18:54)
[2017-07-17] MEDS ORDERED: TRAM50TA PO (18:54)
[2017-07-17] MEDS ORDERED: GLYC1TAB15 PO (18:54)
[2017-07-17] MEDS ORDERED: DICY20TA10 PO (18:54)
--- NOTE | 2017-07-17 18:59 | RADRPT ---
EXAM DATE/TIME: 07/17/2017 18:51 [facility] COMPARISON: CT BRAIN W/O CONTRAST, October 22, 2013, 14:17. Reports only INDICATIONS : Headaches. RADIATION DOSE: 29.85 CTDIvol (mGy) MEDICAL HISTORY : Carcinoma, breast. Chronic obstructive pulmonary disease. SURGICAL HISTORY : Appendectomy. Cholecystectomy. ENCOUNTER: Initial ACUITY: 1 day PAIN SCALE: 6/10 LOCATION: cranial TECHNIQUE: Multiple contiguous axial images were obtained of the head. Using automated exposure control and adj ustment of the mA and/or kV according to patient size, radiation dose was kept as low as reasonably a chievable to obtain optimal diagnostic quality images. DICOM format image data is available electro nically for review and comparison. FINDINGS: CEREBRUM: The ventricles are normal for age. No evidence of midline shift, mass lesion, hemorrhage or acute in farction. No extra-axial fluid collections are seen. POSTERIOR FOSSA: The cerebellum and brainstem are intact. The 4th ventricle is midline. The cerebellopontine angle i s unremarkable. EXTRACRANIAL: The visualized portion of the orbits is intact. SKULL: The calvaria is intact. No evidence of skull fracture. CONCLUSION: Normal examination. Girish Mark MD on July 17, 2017 at 18:57 Board Certified Radiologist. This report was verified electronically.
[2017-07-17 20:00] VITALS: BP 95/54; PULSE 62; RESP 18; O2SAT 98
[2017-07-17 21:02] LABS: BLOOD, URINE NEG (NEG); GLUCOSE,URINE NEG (NEG); KETONE, URINE NEG (NEG); NITRITE,URINE NEG (NEG); PH, URINE 5.5 (5.0-8.5); SQUAMOUS EPITHELIAL CELL URINE <1 /hpf (0-5); URINE COLOR LIGHT-YELLOW (YELLW/STRAW)
[2017-07-17 21:04] LABS: COMMENT (UR) CULT NOT INDICATED; CULTURE IF INDICATED CULT NOT INDICATED
[2017-07-17 21:27] VITALS: BP 95/54; PULSE 62; RESP 18; O2SAT 98
[2017-07-17 21:28] VITALS: BP 104/54; PULSE 60; RESP 18; O2SAT 98
--- NOTE | 2017-07-18 11:31 | EKG ---
Date Performed: 07/17/2017 Time Performed: 16:39:32 PTAGE: 57 years EKG: Sinus rhythm NORMAL ECG Compared to prior tracing no significant change PREVIOUS TRACING : 07/21/2014 11.28 DOCTOR: Wilfrido Beebe Interpretating Date/Time 07/18/2017 11:27:48
== END 2017-07-17 21:33 | disposition home or self-care (01) ==
LOC: NEPC 15:53
DX: M79.601 Pain in right arm (principal); R07.89 Other chest pain; R42 Dizziness and giddiness; R11.2 Nausea with vomiting, unspecified; R51 Headache; J44.9 Chronic obstructive pulmonary disease, unspecified; Z72.0 Tobacco use
CPT/HCPCS: 70450; 71020; 80048; 81001; 82550; 82552; 84484; 85025; 93005; 96374; 96375; 99285; J1100; J1200; J2765

== ENCOUNTER 2018-01-22 14:31 | Emergency (ER) | payer MEDICARE, OTHER ==
[~2018-01-22] VITALS: Ht 162.6 cm; Wt 80.0 kg
[~2018-01-22 14:31] MED LIST changes: -ALBUAER3 INH; -BENA25TA3 PO; +DICY20TA10 PO; -DOXY100C PO; -FAMO1TAB37 PO; +GLYC2TAB PO; -HYDR-3288 PO; -PRED20 PO; +TRAM50TA PO; +UMEC1INH INH; -[UNRECOGNIZED DRUG - CODE] EACH EYE
[2018-01-22 14:36] VITALS: BP 134/67; PULSE 68; RESP 18; TEMP 98.4; O2SAT 99
[2018-01-22] MEDS ORDERED: SODIUM CHLORIDE 0.9% FLUSH 10 ML FLUSH IVF PRN (15:00)
[2018-01-22 15:01] VITALS: BP_SYST 120; BP_SYST 123; BP_SYST 125; BP_DIAS 68; BP_DIAS 71; BP_DIAS 76
--- NOTE | 2018-01-22 15:29 | RADRPT ---
EXAM DATE/TIME: 01/22/2018 15:10 [facility] COMPARISON: CHEST PA & LAT, July 17, 2017, 17:00. INDICATIONS : Short of breath, back pain. MEDICAL HISTORY : Chronic obstructive pulmonary disease. SURGICAL HISTORY : None. ENCOUNTER: Initial ACUITY: 2 days PAIN SCORE: 0/10 LOCATION: Bilateral chest FINDINGS: A single view of the chest demonstrates the lungs to be symmetrically aerated without evidence of mas s, infiltrate or effusion. The cardiomediastinal contours are unremarkable. Osseous structures are intact. CONCLUSION: Normal examination. Moises Mcdonald MD on January 22, 2018 at 15:26 Board Certified Radiologist. This report was verified electronically.
[2018-01-22 15:31] LABS: AUTOMATED NEUTROPHIL # 9.8 TH/MM3 (1.8-7.7); BASOPHIL % 0.3 % (0.0-2.0); EOSINOPHIL % 0.4 % (0.0-4.0); HEMATOCRIT 41.2 % (35.0-46.0); HEMOGLOBIN 13.9 GM/DL (11.6-15.3); LYMPH % 12.6 % (9.0-44.0); LYMPHOCYTE # 1.5 TH/MM3 (1.0-4.8); MEAN CELL VOLUME 93.2 FL (80.0-100.0); MEAN CORPUSCULAR HEMOGLOBIN 31.5 PG (27.0-34.0); MEAN CORPUSCULAR HGB CONC 33.8 % (32.0-36.0); MEAN PLATELET VOLUME 7.7 FL (7.0-11.0); MONO % 3.4 % (0.0-8.0); MONOCYTE # 0.4 TH/MM3 (0-0.9); NEUT % 83.3 % (16.0-70.0); PLATELET COUNT 314 TH/MM3 (150-450); RED BLOOD COUNT 4.42 MIL/MM3 (4.00-5.30); RED CELL DISTRIBUTION WIDTH 13.4 % (11.6-17.2); WHITE BLOOD COUNT 11.8 TH/MM3 (4.0-11.0)
[2018-01-22 15:40] LABS: BILIRUBIN, URINE NEG (NEG); BLOOD, URINE NEG (NEG); GLUCOSE,URINE NEG (NEG); KETONE, URINE NEG (NEG); NITRITE,URINE NEG (NEG); SQUAMOUS EPITHELIAL CELL URINE <1 /hpf (0-5); URINE COLOR LIGHT-YELLOW (YELLW/STRAW); URINE LEUKOCYTE ESTERASE NEG (NEG)
--- NOTE | 2018-01-22 15:41 | PD ---
HPI Chief Complaint: Respiratory Symptoms Time Seen by Provider: 14:57 Travel History International Travel<30 days: No Contact w/Intl Traveler<30days: No Traveled to known affect area: No History of Present Illness HPI 57-year-old female patient with history of CAD, COPD, recent problems with otitis media, has been on multiple antibiotics recently prescribed by primary care doctor and mounter clarinets, but states that she is still having problems with dizziness, fluid in her ears, coughing, shortness of breath. She has also been nauseous and vomiting. She denies any other issues. Modifying Factors: None Associated Signs & Symptoms: Coughing, shortness of breath, fluid in her ears, dizziness Risk Factors: History of COPD, otitis media PFSH Past Medical History Anxiety: Yes Depression: Yes Cancer: Yes (BREAST) Cardiac Catheterization: Yes (FIRST IN 1999, SECOND 2005) High Cholesterol: Yes Chest Pain: Yes (2 HEART CATHS ) COPD: Yes Coronary Artery Disease: Yes GERD: Yes Glaucoma: Yes Headaches: Yes Respiratory: Yes Radiation Therapy: Yes Sleep Apnea: Yes PNEUMOCCOCAL Vaccine (Year): 2 ?: Not Menopausal: Yes : 6 Para: 0 Miscarriage: 6 Dilation and Curettage (D&C): Yes (x 6) Past Surgical History Abdominal Surgery: Yes (SEVERAL LAPOROSCOPIES) Appendectomy: Yes Cardiac Surgery: No Cholecystectomy: Yes Genitourinary Surgery: No Gynecologic Surgery: Yes (LAPOSCOPY X5 OVER TEN YEARS AGO ) Neurologic Surgery: No Thoracic Surgery: No Other Surgery: Yes (R BREAST LUMPECTOMY) Family History Family Hypercholesterolemia: Yes Social History Alcohol Use: No Tobacco Use: Yes (STATES SHE IS TRYING TO QUIT ) Substance Use: No Allergies-Medications (Allergen,Severity, Reaction): Coded Allergies: fluoxetine (Verified Allergy, Severe, Rash, 07/17/17) ketorolac (Verified Allergy, Severe, Hallucinations, 07/17/17) duloxetine (Verified Allergy, Unknown, 01/22/18) Reported Meds & Prescriptions Reported Meds & Active Scripts Active Reported Tramadol (Tramadol HCl) 50 Mg Tab 50 Mg PO Q6H PRN Incruse Ellipta Inh (Umeclidinium Derry Inh) 0.0625 Mg/Act Inh 1 Puff INH DAILY Dicyclomine (Dicyclomine HCl) 20 Mg Tab 20 Mg PO Q6HR PRN C 500 (Ascorbic Acid) 500 Mg Tab 500 Mg PO DAILY B-12 (Cyanocobalamin) 100 Mcg Tab 100 Mcg PO DAILY Probiotic (Lactobacillus Acidophilus) 1 Cap Cap 1 Cap PO TIDAC Effexor XR 24 HR (Venlafaxine HCl) 75 Mg Cap 75 Mg PO DAILY Latanoprost Opth Drops (Latanoprost) 0.005% Drops 1 Drop EACH EYE HS Refrigerate until opened. Nexium (Esomeprazole DR) 40 Mg Capdr 40 Mg PO DAILY BRAND MEDICALLY NECESSARY Bethanechol 25 Mg Tab 25 Mg PO QID Xanax (Alprazolam) 1 Mg Tab 1 Mg PO Q4-6H PRN Proventil Hfa 6.7 GM Inh (Albuterol Sulfate) 90 Mcg/Act Aer 2 Puff INH Q4H PRN Review of Systems Except as stated in HPI: all other systems reviewed are Neg Physical Exam Narrative GENERAL: Well-developed middle-age female patient currently in mild distress. Awake and oriented 3. SKIN: Focused skin assessment warm/dry. HEAD: Atraumatic. Normocephalic. EYES: Pupils equal and round. No scleral icterus. No injection or drainage. ENT: No nasal bleeding or discharge. Mucous membranes pink and moist. EARS: Bilateral pinnae and external canals appear within normal limits. Bilateral tympanic membranes notable for cloudy fluid behind the TM, without erythema, dullness or perforation. NECK: Trachea midline. No JVD. CARDIOVASCULAR: Regular rate and rhythm. No murmur appreciated. RESPIRATORY: No accessory muscle use. Decreased throughout. Breath sounds equal bilaterally. GASTROINTESTINAL: Abdomen soft, non-tender, nondistended. Hepatic and splenic margins not palpable. MUSCULOSKELETAL: No obvious deformities. No clubbing. No cyanosis. No edema. NEUROLOGICAL: Awake and alert. No obvious cranial nerve deficits. Motor grossly within normal limits. Normal speech. PSYCHIATRIC: Appropriate mood and affect; insight and judgment normal. Data Data Last Documented VS Vital Signs Date Time Temp Pulse Resp B/P (MAP) Pulse Ox O2 Delivery O2 Flow Rate FiO2 01/22/18 16:17 97 Nasal Cannula 2.00 01/22/18 15:01 69 123/71 (88) 80 125/76 (92) 79 120/68 (85) 01/22/18 14:42 18 01/22/18 14:36 98.4 Orders Orders Electrocardiogram (01/22/18 14:57) Complete Blood Count With Diff (01/22/18 14:57) Comprehensive Metabolic Panel (01/22/18 14:57) Magnesium (Mg) (01/22/18 14:57) Ckmb (Isoenzyme) Profile (01/22/18 14:57) Troponin I (01/22/18 14:57) Urinalysis - C+S If Indicated (01/22/18 14:57) Chest, Single Ap (01/22/18 14:57) Ecg Monitoring (01/22/18 14:57) Iv Access Insert/Monitor (01/22/18 14:57) Oximetry (01/22/18 14:57) Sodium Chloride 0.9% Flush (Ns Flush) (01/22/18 15:00) Methylprednisolone So Succ Inj (Solumedr (01/22/18 16:00) Albuterol-Ipratropium Neb (Duoneb Neb) (01/22/18 16:00) Blood Culture (01/22/18 16:28) Cyclobenzaprine (Flexeril) (01/22/18 16:45) Spine, Lumbar - Ltd (Ap & Lat) (01/22/18 16:39) Ed Discharge Order (01/22/18 19:18) Labs Laboratory Tests Test 01/22/18 15:05 White Blood Count 11.8 TH/MM3 Red Blood Count 4.42 MIL/MM3 Hemoglobin 13.9 GM/DL Hematocrit 41.2 % Mean Corpuscular Volume 93.2 FL Mean Corpuscular Hemoglobin 31.5 PG Mean Corpuscular Hemoglobin Concent 33.8 % Red Cell Distribution Width 13.4 % Platelet Count 314 TH/MM3 Mean Platelet Volume 7.7 FL Neutrophils (%) (Auto) 83.3 % Lymphocytes (%) (Auto) 12.6 % Monocytes (%) (Auto) 3.4 % Eosinophils (%) (Auto) 0.4 % Basophils (%) (Auto) 0.3 % Neutrophils # (Auto) 9.8 TH/MM3 Lymphocytes # (Auto) 1.5 TH/MM3 Monocytes # (Auto) 0.4 TH/MM3 Eosinophils # (Auto) 0.0 TH/MM3 Basophils # (Auto) 0.0 TH/MM3 CBC Comment DIFF FINAL Differential Comment Urine Color LIGHT-YELLOW Urine Turbidity CLEAR Urine pH 7.0 Urine Specific Baggs 1.003 Urine Protein NEG mg/dL Urine Glucose (UA) NEG mg/dL Urine Ketones NEG mg/dL Urine Occult Blood NEG Urine Nitrite NEG Urine Bilirubin NEG Urine Urobilinogen LESS THAN 2.0 MG/DL Urine Leukocyte Esterase NEG Urine RBC LESS THAN 1 /hpf Urine WBC LESS THAN 1 /hpf Urine Squamous Epithelial Cells <1 /hpf Microscopic Urinalysis Comment CULT NOT INDICATED Blood Urea Nitrogen 10 MG/DL Creatinine 0.80 MG/DL Random Glucose 116 MG/DL Total Protein 7.1 GM/DL Albumin 3.6 GM/DL Calcium Level 8.6 MG/DL Magnesium Level 1.8 MG/DL Alkaline Phosphatase 42 U/L Aspartate Amino Transf (AST/SGOT) 8 U/L Alanine Aminotransferase (ALT/SGPT) 22 U/L Total Bilirubin 0.2 MG/DL Sodium Level 140 MEQ/L Potassium Level 3.9 MEQ/L Chloride Level 105 MEQ/L Carbon Dioxide Level 24.6 MEQ/L Anion Gap 10 MEQ/L Estimat Glomerular Filtration Rate 74 ML/MIN Total Creatine Kinase 45 U/L Troponin I LESS THAN 0.02 NG/ML [facility] Medical Decision Making Medical Screen Exam Complete: Yes Emergency Medical Condition: Yes Medical Record Reviewed: Yes Interpretation(s) EKG shows NSR, no ST elevation or depression, and no arrhythmias. No significant T-wave inversions. Laboratory Tests Test 01/22/18 15:05 White Blood Count 11.8 TH/MM3 (4.0-11.0) Neutrophils (%) (Auto) 83.3 % (16.0-70.0) Neutrophils # (Auto) 9.8 TH/MM3 (1.8-7.7) Random Glucose 116 MG/DL (74-106) Alkaline Phosphatase 42 U/L (45-117) Aspartate Amino Transf (AST/SGOT) 8 U/L (15-37) Estimat Glomerular Filtration Rate 74 ML/MIN (>89) Troponin I LESS THAN 0.02 NG/ML Last 24 hours Impressions Lumbar Spine X-Ray 01/22/18 1639 Signed Impressions: Service Date/Time: Monday, January 22, 2018 17:26 - CONCLUSION: Unremarkable limited examination of the lumbar spine. Moises Mcdonald MD Chest X-Ray 01/22/18 1457 Signed Impressions: Service Date/Time: Monday, January 22, 2018 15:10 - CONCLUSION: Normal examination. Moises Mcdonald MD Differential Diagnosis Serous otitis media versus labyrinthitis versus dehydration versus pneumonia versus COPD exacerbation Narrative Course Chest x-ray did not show any signs of acute pulmonary processes. EKG did not show any signs of dysrhythmias. Lab work did not show significant metabolic issues. She was given Solu-Medrol and nebulizers in the ER with improvement in breathing and saturations. Vital signs are stable in the ER. She has no focal neurological deficits. She did complain of lower back pain which she has had in the past as well, was given pain medications. On reevaluation at 7 PM, she has some improvement in pain. At this point, she is getting up, ambulatory in the ER, states that at this point she is fairly frustrated with all her doctors , since they cannot tell her what is going on with her for the past few years. She has had these issues for the past 2 years. At this point, I will have her follow-up with her primary care doctor. I have tried to call Dr. Martinez, patient's mounter clarinets, whose patient state has sent her and but I was not able to contact them. I did not receive any call back. At this point, my plan would be to release her. Return for any worsening in symptoms as necessary. The plan has been discussed with her and she states understanding. Diagnosis Primary Impression: COPD with exacerbation Med/Other Pt SpecificInfo: Prescription(s) given Scripts Albuterol 6.7 GM Inh (Proventil Hfa 6.7 GM Inh) 90 Mcg/Act Aer 2 PUFF INH Q4-6H Y for SHORTNESS OF BREATH, #1 INHALER 0 Refills Prov: Dior Mcdaniel MD 01/22/18 Prednisone (Prednisone) 50 Mg Tab 50 MG PO DAILY for 5 Days, #5 TAB 0 Refills Prov: Dior Mcdaniel MD 01/22/18 Disposition: 01 DISCHARGE HOME Condition: Stable Dior Mcdaniel MD Jan 22, 2018 15:41
[2018-01-22] MEDS ORDERED: methylPREDNISolone SOD SUCC 125 MG/2 ML VIAL IV PUSH ONE (16:00)
[2018-01-22 16:03] LABS: ALBUMIN 3.6 GM/DL (3.4-5.0); ALT (GPT) 22 U/L (10-53); AST (GOT) 8 U/L (15-37); BICARBONATE 24.6 MEQ/L (21.0-32.0); BLOOD UREA NITROGEN 10 MG/DL (7-18); CALCIUM 8.6 MG/DL (8.5-10.1); CHLORIDE 105 MEQ/L (98-107); GLOMERULAR FILTRATION RATE 74 ML/MIN (>89); GLUCOSE,RANDOM 116 MG/DL (74-106); MAGNESIUM 1.8 MG/DL (1.5-2.5); SODIUM (NA) 140 MEQ/L (136-145)
[2018-01-22 16:07] LABS: ALKALINE PHOSPHATASE 42 U/L (45-117); TOTAL BILIRUBIN ADULT 0.2 MG/DL (0.2-1.0); TOTAL PROTEIN 7.1 GM/DL (6.4-8.2); TROPONIN I LESS THAN 0.02 NG/ML (0.02-0.05)
[2018-01-22] MEDS: RESP: ALBUTEROL 2.5 MG/IPRATROPIUM 0.5 MG NEB (SCH) INH (16:16)
[2018-01-22 16:17] VITALS: O2SAT 97
[2018-01-22] MEDS ORDERED: CYCLOBENZAPRINE HCL 10 MG TAB PO ONE (16:45)
--- NOTE | 2018-01-22 17:43 | RADRPT ---
EXAM DATE/TIME: 01/22/2018 17:26 [facility] COMPARISON: No previous studies available for comparison. INDICATIONS : Lower back pain for 6 months with no known injury MEDICAL HISTORY : Spinal spondylosis SURGICAL HISTORY : None. ENCOUNTER: Initial ACUITY: 4 - 6 months PAIN SCORE: 10/10 LOCATION: Lumbar spine FINDINGS: Two view examination was performed. There are five non-rib bearing vertebral bodies. The vertebral bodies are in normal alignment without evidence of subluxation or scoliosis. The disc spaces are leonarda ntained. The pedicles are intact. Bony mineralization is normal. No fracture is identified. Cholec ystectomy clips. CONCLUSION: Unremarkable limited examination of the lumbar spine. Moises Mcdonald MD on January 22, 2018 at 17:41 Board Certified Radiologist. This report was verified electronically.
[2018-01-22] MEDS ORDERED: PRED50 PO (19:27)
[2018-01-22] MEDS ORDERED: ALBU6.7H INH (19:27)
--- NOTE | 2018-01-23 16:34 | EKG ---
Date Performed: 01/22/2018 Time Performed: 15:12:45 PTAGE: 57 years EKG: Sinus rhythm NORMAL ECG PREVIOUS TRACING : 07/17/2017 16.39 Since the previous tracing, no significant change noted DOCTOR: Josh Oliva Interpretating Date/Time 01/23/2018 16:29:26
== END 2018-01-22 19:36 | disposition home or self-care (01) ==
LOC: NEPE 14:31
DX: J44.1 Chronic obstructive pulmonary disease with (acute) exacerbation (principal); R42 Dizziness and giddiness; R06.02 Shortness of breath; H93.93 Unspecified disorder of ear, bilateral; R11.2 Nausea with vomiting, unspecified; M54.5 Low back pain; I25.10 Atherosclerotic heart disease of native coronary artery without angina pectoris; K21.9 Gastro-esophageal reflux disease without esophagitis; E78.00 Pure hypercholesterolemia, unspecified; H40.9 Unspecified glaucoma; F41.8 Other specified anxiety disorders; G47.30 Sleep apnea, unspecified; Z72.0 Tobacco use
CPT/HCPCS: 71045; 72100; 80053; 81001; 82550; 83735; 84484; 85025; 87040; 93005; 94640; 94664; 96374; 99284; J2930